=== PATIENT | female | born 1950 | race Caucasian/White ===

== ENCOUNTER 2017-03-07 08:28 | Day surgery (SDC) | payer MEDICARE, OTHER ==
[~2017-03-07 08:28] MED LIST: ALLEGRA180 PO; BREO ELLIPTA INH; CALTRA600D PO; CAT1 PO; CLARIT10 PO; DETROLLA4 PO; ETODOLAC500 MG OR; FLONASE NAS; FLOVENT110 INH; FORTAMET500 MG PO; KLOR-CON 1010 MEQ PO; L40 PO; MULTIVITAMI1 PO; NEXIUM40 PO; PREV30 PO; PVC V; TOPAMAX25 PO; TRICOR145 PO; ZANAFLEX 4 MG TA4 MG PO; ZIAC2 PO
[2017-03-07 08:56] LABS: BASOPHILS 0.8 %; BASOPHILS ABSOLUTE 0.05 10/3/uL (0.0-0.16); EOSINOPHILS 5.2 %; EOSINOPHILS ABSOLUTE 0.33 10/3/uL (0.0-0.53); HEMATOCRIT 37.9 % (36.0-48.0); HEMOGLOBIN 12.8 g/dL (12.0-16.0); IMMATURE GRANULOCYTES 0.2 %; IMMATURE GRANULOCYTES ABSOLUTE 0.01 10/3/uL (0.0-0.11); INTERNATIONAL NORMAL RATI 1.1 UNITS (-); LYMPHOCYTES 25.6 %; LYMPHOCYTES ABSOLUTE 1.62 10/3/uL (0.67-4.30); MANUAL DIFF NO %; MEAN CORPUS HGB CONC 33.8 g/dL (32.0-36.0); MEAN CORPUSCULAR HEMOGLOB 28.3 pg (26.0-34.0); MEAN CORPUSCULAR VOLUME 83.8 fL (80-100); MEAN PLATELET VOLUME 8.7 fL (9.2-13.0); MONOCYTES 7.3 %; MONOCYTES ABSOLUTE 0.46 10/3/uL (0.21-1.20); NEUTROPHILS 60.9 %; NEUTROPHILS ABSOLUTE 3.85 10/3/uL (2.02-8.40); PLATELET COUNT 272 10/3/uL (150-400); PROTIME (NOT ORD) 14.2 SEC (12.0-14.5); RBC DISTRIBUTION WIDTH 13.9 % (12.0-16.0); RED CELL COUNT 4.52 10/6/uL (4.0-5.6); WHITE BLOOD CELLS 6.3 10/3/uL (4.5-10.5)
[2017-03-07 08:57] LABS: PARTIAL THROMBO TIME 29.2 SEC (22.5-37.2)
[2017-03-07 09:08] LABS: BUN (BLOOD UREA NITROGEN) 9 MG/DL (6-23); CALCIUM, SERUM 9.2 MG/DL (8.5-10.4); CHLORIDE, SERUM 100 MMOL/L (96-112); CO2 (CARBON DIOXIDE) 31 MMOL/L (24-34); CREATININE 0.72 MG/DL (0.55-1.02); DIRECT BILIRUBIN 0.1 MG/DL (0.0-0.4); GFR AFRICAN AMERICAN 100 ML/MIN (>=60); GFR NON AFRICAN AMERICAN 86 ML/MIN (>=60); INDIRECT BILIRUBIN(NOT ORDER) 0.3 MG/DL (0.1-0.9); SGOT(AST) 33 U/L (5-40); SGPT(ALT) 35 U/L (5-65); SODIUM, SERUM 139 MMOL/L (135-148); TOTAL BILIRUBIN 0.4 MG/DL (0-1.2); TOTAL PROTEIN 8.2 G/DL (6.0-8.5)
[2017-03-07 09:11] LABS: ALBUMIN 3.3 G/DL (3.5-5.0); ALKALINE PHOSPHATASE 95 U/L (45-117); GLUCOSE, SERUM 137 MG/DL (60-99); POTASSIUM, SERUM 3.1 MMOL/L (3.5-5.3)
== END 2017-03-07 23:59 | disposition home or self-care (01) ==
LOC: DMU 08:28
PROVIDERS: Anesthesiology; Internal Medicine Pulmonary Disease
DX: J45.41 Moderate persistent asthma with (acute) exacerbation (principal); Z53.9 Procedure and treatment not carried out, unspecified reason; J30.9 Allergic rhinitis, unspecified; K21.9 Gastro-esophageal reflux disease without esophagitis; R05 Cough; Z71.89 Other specified counseling; E11.319 Type 2 diabetes mellitus with unspecified diabetic retinopathy without macular edema; R60.9 Edema, unspecified; R53.83 Other fatigue; F43.21 Adjustment disorder with depressed mood; Z63.4 Disappearance and death of family member; I10 Essential (primary) hypertension; B37.3 Candidiasis of vulva and vagina; R32 Unspecified urinary incontinence; J30.2 Other seasonal allergic rhinitis; J30.1 Allergic rhinitis due to pollen; M19.90 Unspecified osteoarthritis, unspecified site; E66.9 Obesity, unspecified; K75.81 Nonalcoholic steatohepatitis (NASH); G47.00 Insomnia, unspecified; E03.9 Hypothyroidism, unspecified; E87.6 Hypokalemia; E78.5 Hyperlipidemia, unspecified; E78.00 Pure hypercholesterolemia, unspecified; M79.671 Pain in right foot; Z87.440 Personal history of urinary (tract) infections; Z90.49 Acquired absence of other specified parts of digestive tract; Z98.41 Cataract extraction status, right eye; Z98.42 Cataract extraction status, left eye; Z96.1 Presence of intraocular lens; Z90.710 Acquired absence of both cervix and uterus; Z90.89 Acquired absence of other organs; Z82.5 Family history of asthma and other chronic lower respiratory diseases; Z80.3 Family history of malignant neoplasm of breast; Z81.1 Family history of alcohol abuse and dependence; Z82.61 Family history of arthritis; Z83.3 Family history of diabetes mellitus; Z79.899 Other long term (current) drug therapy; Z79.51 Long term (current) use of inhaled steroids; Z88.2 Allergy status to sulfonamides; Z88.8 Allergy status to other drugs, medicaments and biological substances
CPT/HCPCS: 80048; 80076; 82962; 85025; 85610; 85730; 93005; A9270-GY